=== PATIENT | female | born 1940 | race Caucasian/White ===

== ENCOUNTER 2017-05-03 08:06 | Day surgery (SDC) | payer MEDICARE, BC ==
[~2017-05-03] VITALS: Ht 165.2 cm; Wt 67.0 kg
[~2017-05-03 08:06] MED LIST: ACCUPRIL20TAB PO; ALDACTONE 25MG25 M1 PO; CAL-CITRATE PLU1 TAB PO; CEPHALEXIN500 M1 PO; COREG 6.256.25 MG/TA PO; COUMADIN 5MG5 MG/TAB PO; D-31000 IU PO; DUO-KAPS1 CAP PO; EVISTA 60MG60 MG/TAB PO; LASIX 40MG TABL40 MG PO; LOVENOX 8080 MG/0.8 SQ; PACERONE400 MG PO; SYNTHROID0.1 MG/TAB PO; ZOCOR 20MG20 MG PO
[2017-05-03 09:04] LABS: INR 4.7 (0.8-3.0); MEAN CELL VOLUME 105 fl (80.0-100.0); MEAN CORPUSCULAR HGB CONC 32 g/dl (33.0-37.0); MEAN PLATELET VOLUME 9.7 fl (7.4-10.4); PLATELET COUNT 157 K/mm3 (130-400); RED BLOOD COUNT 3.19 M/mm3 (4.10-5.30); REDCELL DISTRIBUTION WIDTH-CV 13.6 % (11.5-14.5); WHITE BLOOD COUNT 2.6 K/mm3 (4.8-10.8)
[2017-05-03 09:05] LABS: HEMATOCRIT 33.5 % (37.0-47.0); HEMOGLOBIN 10.7 g/dl (12.5-16.0); MEAN CORPUSCULAR HEMOGLOBIN 34 pg (27.0-31.0)
[2017-05-03 09:08] LABS: CALCIUM 9.3 mg/dL (8.4-10.2); CREATININE, serum 0.68 mg/dL (0.52-1.25); POTASSIUM 3.5 mmol/L (3.4-5.0)
[2017-05-03] MEDS ORDERED: COREG 6.256.25 MG/TA PO (10:05)
[2017-05-03] MEDS ORDERED: ALDACTONE 25MG25 M1 PO (10:07)
[2017-05-03] MEDS ORDERED: CITRACAL + D CA1 TAB PO (10:18)
[2017-05-03 10:21] VITALS: BP 101/66; PULSE 69
[2017-05-03 10:28] VITALS: BP 131/75; PULSE 70
== END 2017-05-03 11:58 | disposition home or self-care (01) ==
LOC: COL.CAR 08:06
PROVIDERS: Internal Medicine Cardiovascular Disease
DX: Z45.02 Encounter for adjustment and management of automatic implantable cardiac defibrillator (principal); Z95.2 Presence of prosthetic heart valve; Z79.01 Long term (current) use of anticoagulants; I08.3 Combined rheumatic disorders of mitral, aortic and tricuspid valves; I42.8 Other cardiomyopathies; I48.2 Chronic atrial fibrillation; I50.9 Heart failure, unspecified; Z85.3 Personal history of malignant neoplasm of breast; J44.9 Chronic obstructive pulmonary disease, unspecified; I10 Essential (primary) hypertension; E03.9 Hypothyroidism, unspecified; I69.354 Hemiplegia and hemiparesis following cerebral infarction affecting left non-dominant side; Z53.9 Procedure and treatment not carried out, unspecified reason
CPT/HCPCS: J3370

== ENCOUNTER 2017-07-28 09:50 | Day surgery (SDC) | payer MEDICARE, BC ==
[~2017-07-28] VITALS: Ht 165.1 cm; Wt 65.9 kg
[2017-07-28] VITALS (8 sets, daily range): BP systolic 99–117; BP diastolic 59–84; PULSE 60–70; TEMP 98.1
[~2017-07-28 09:50] MED LIST changes: +CITRACAL + D CA1 TAB PO
[2017-07-28 10:34] LABS: MEAN CELL VOLUME 103 fl (80.0-100.0); MEAN CORPUSCULAR HGB CONC 33 g/dl (33.0-37.0); MEAN PLATELET VOLUME 9.4 fl (7.4-10.4); PLATELET COUNT 173 K/mm3 (130-400); RED BLOOD COUNT 3.27 M/mm3 (4.10-5.30); REDCELL DISTRIBUTION WIDTH-CV 15.4 % (11.5-14.5); WHITE BLOOD COUNT 3.2 K/mm3 (4.8-10.8)
[2017-07-28 10:36] LABS: HEMATOCRIT 33.8 % (37.0-47.0); MEAN CORPUSCULAR HEMOGLOBIN 34 pg (27.0-31.0)
[2017-07-28 10:37] LABS: INR 1.5 (0.8-3.0); PROTHROMBIN TIME 16.5 SECONDS (9.7-12.8)
[2017-07-28] MEDS ORDERED: ALDACTONE 25MG25 M1 PO (10:49)
[2017-07-28 10:55] LABS: CALCIUM 8.8 mg/dL (8.4-10.2); CREATININE, serum 0.71 mg/dL (0.52-1.25); POTASSIUM 4.2 mmol/L (3.4-5.0)
[2017-07-28] MEDS ORDERED: CLEOCIN HCL300 MG PO (14:52)
== END 2017-07-28 15:20 | disposition home or self-care (01) ==
LOC: COL.CAR 09:50
PROVIDERS: Internal Medicine Cardiovascular Disease
DX: Z45.02 Encounter for adjustment and management of automatic implantable cardiac defibrillator (principal); I50.9 Heart failure, unspecified; I48.2 Chronic atrial fibrillation; I42.9 Cardiomyopathy, unspecified; I36.1 Nonrheumatic tricuspid (valve) insufficiency; Z79.01 Long term (current) use of anticoagulants
CPT/HCPCS: C1882; J2250; J3010; J3370; J7030; J7050